=== PATIENT | female | born 1935 | race Caucasian/White ===

== ENCOUNTER → 2021-12-24 13:51 | Outpatient (BNVA) | payer MEDICARE, OTHER, SELFPAY | PROVIDERS: Visit Provider Internal Medicine Cardiovascular Disease | DX: I48.0 Paroxysmal atrial fibrillation (principal); Z79.899 Other long term (current) drug therapy; E78.2 Mixed hyperlipidemia; I10 Essential (primary) hypertension; M79.89 Other specified soft tissue disorders | CPT/HCPCS: 36415; 80048; 83880; 99214 ==

== ENCOUNTER 2022-02-08 11:10 | Outpatient (CLI) | payer MEDICARE, OTHER, SELFPAY ==
--- NOTE | 2022-02-08 12:00 | USCV_ITS ---
Tamia Fuchs Age: 86 Gender: F : 1935 Exam Date: 02/08/2022 11:41 Ordering Phys: Cassie Chew MD ([email or web address]) Technologist: Lawrence Angel Exam Location[place] [facility] [place]: HISTORY: PROCEDURES: FINDINGS: There is no evidence of bilateral deep vein thrombosis. No evidence of superficial thrombosis in the bilateral saphenous system. No evidence of reflux was noted in the bilateral deep venous system. Reflux is noted within the left GSV mid, GSV dist, GSV below knee. Reflux is noted within the right GSV below knee. The veins were found to be easily compressible with spontaneous blood flow. Non pulsatile flow pattern. CONCLUSIONS 1. No evidence of a DVT in the above-mentioned identifiable veins. 2. Significant venous reflux of greater than 500 ms were noted at the right proximal, mid, distal and below-knee segments of the greater saphenous vein. These venous segments were found to be less than 1 cm deep from the surface except the proximal greater saphenous vein which was 1.19 cm deep from the surface. The venous segments were measuring anywhere from 0.28 to 0.37 cm in diameter. 3. Significant venous reflux of greater than 500 ms was noted at the below-knee segment of the greater saphenous vein on the left side. This venous segment was found to have a diameter of 0.47 cm. It was at a depth of 0.21 cm from the surface The above-mentioned venous segments were found to be superficial and tortuous. Dr Cassie Chew MD [facility] (Electronically Signed) Final Date: 10 February 2022 23:11 S
== END 2022-02-08 11:11 | disposition home or self-care (01) ==
LOC: RAD 11:15
PROVIDERS: PCP Emergency Medicine; Visit Provider Internal Medicine Cardiovascular Disease
DX: M79.89 Other specified soft tissue disorders (principal); I87.2 Venous insufficiency (chronic) (peripheral)
CPT/HCPCS: 93970

== ENCOUNTER → 2022-04-06 13:14 | Outpatient (BNVA) | payer MEDICARE, OTHER, SELFPAY | PROVIDERS: PCP Emergency Medicine; Visit Provider Thoracic Surgery (Cardiothoracic Vascular Surgery) | DX: M79.606 Pain in leg, unspecified (principal); I83.893 Varicose veins of bilateral lower extremities with other complications | CPT/HCPCS: 99203 ==